=== PATIENT | female | born 1980 | race Caucasian/White ===

== ENCOUNTER 2019-09-24 06:36 | Day surgery (SDC) | payer BC ==
[~2019-09-24 06:36] MED LIST: Lactated Ringers 1,000 ML IV SCH; Sodium Chloride 0.9% 10 ML Syringe FLUSH PRN
[2019-09-24] MEDS ORDERED: fentaNYL 100 MCG/2 ML SDV IV ONE (06:37)
[2019-09-24] MEDS ORDERED: Dexamethasone 4 MG/ML 5 ML MDV IVPUSH ONE (06:37)
[2019-09-24] MEDS ORDERED: HYDROmorphone 2 MG/ML SDV IV ONE (06:37)
[2019-09-24] MEDS ORDERED: Ondansetron 4 MG/2 ML SDV IVPUSH ONE (06:37)
[2019-09-24] MEDS ORDERED: Ketorolac 30 MG/ML SDV IVPUSH ONE (06:37)
[2019-09-24] MEDS ORDERED: Propofol 200 MG/20 ML SDV IV ONE (06:37)
[2019-09-24] MEDS ORDERED: Succinylcholine 200 MG/10 ML MDV IV ONE (06:37)
[2019-09-24] MEDS ORDERED: Neostigmine Methylsulfate 10 MG/10 ML MDV IVPUSH ONE (06:37)
[2019-09-24] MEDS ORDERED: Lactated Ringers 1,000 ML IV ONE (06:37)
[2019-09-24] MEDS ORDERED: Acetaminophen 1,000 MG/100 ML Infusion Bottle Premix IV ONE (06:37)
[2019-09-24] MEDS ORDERED: Glycopyrrolate 0.2 MG/ML 5 ML MDV IV ONE (06:37)
[2019-09-24] MEDS ORDERED: Rocuronium 100 MG/10 ML MDV IV ONE (06:37)
[2019-09-24] MEDS ORDERED: Midazolam 1 MG/ML 2 ML SDV IV ONE (06:37)
[2019-09-24] MEDS ORDERED: Lidocaine 2% 5 ML SDV INJECT ONE (06:37)
[2019-09-24] MEDS ORDERED: ceFAZolin 2 GM in Premix Bag 1 BAG IV ONE (07:30)
--- NOTE | 2019-09-24 08:18 | PCM.PN ---
- General Info Date of Service: 09/24/19 - Review of Systems Systems Review Comment:: 39-year-old female developed upper abdominal pain this week. Work-up as identified cholelithiasis with findings of acute cholecystitis. Patient continues to have pain in the right upper quadrant. She comes this morning for cholecystectomy. She is medically stable to proceed today. No laboratory contraindications are identified to proceeding with cholecystectomy under general anesthesia today. I have again discussed the proposed cholecystectomy with the patient. She agrees to proceed excepting risks. Her questions are answered and instructions reviewed. - Patient Data Vitals - Most Recent: Last Vital Signs Temp 99.0 F 09/24/19 07:22 Pulse 97 09/24/19 07:22 Resp 16 09/24/19 07:22 BP 138/96 H 09/24/19 07:22 Pulse Ox 100 09/24/19 07:22 Weight - Most Recent: 213 lb Lab Results Last 24 Hours: Laboratory Results - last 24 hr 09/24/19 09/24/19 Range/Units 06:59 07:15 Urine HCG, Qual Negative (NEGATIVE) SARS Virus RNA (PCR) Negative (NEGATIVE) Med Orders - Current: Current Medications Lactated Ringer's (Ringers, Lactated) 1,000 mls @ 125 mls/hr IV ASDIRECTED [facility] Last Admin: 09/24/19 08:00 Dose: 125 mls/hr Documented by: Sodium Chloride (Saline Flush) 10 ml FLUSH ASDIRECTED PRN PRN Reason: Keep Vein Open Discontinued Medications Cefazolin Sodium/Dextrose 2 gm (/ Premix) 50 mls @ 100 mls/hr IV ONETIME ONE Stop: 09/24/19 07:59 Last Admin: 09/24/19 08:10 Dose: 100 mls/hr Documented by: Sepsis Event Note - Focused Exam Vital Signs: Vital Signs Temp Pulse Resp BP Pulse Ox 09/24/19 07:22 99.0 F 97 16 138/96 H 100 Date Exam was Performed: 09/24/19 Time Exam was Performed: 08:15 - Problem List Review Problem List Initiated/Reviewed/Updated: Yes - My Orders Last 24 Hours: My Active Orders 09/23/19 13:52 Resuscitation Status Routine 09/23/19 Dinner Nothing Per Oral Diet [DIET] 09/24/19 06:30 Patient to Empty Bladder [RC] ASDIRECTED RT Incentive Spirometry [RC] ASDIRECTED Verify Patient Consent Obtain [RC] ASDIRECTED Lactated Ringers [Ringers, Lactated] 1,000 ml IV ASDIRECTED Sodium Chloride 0.9% [Saline Flush] 10 ml FLUSH ASDIRECTED PRN Peripheral IV Insertion Adult [OM.PC] Routine Sequential Compression Device [OM.PC] Routine 09/24/19 08:00 Patient Status [ADT] Routine - Assessment Assessment:: Acute cholecystitis with cholelithiasis - Plan Plan:: Cholecystectomy
[2019-09-24] MEDS ORDERED: Bupivacaine 0.5%/EPINEPHrine 1:200,000 50 ML MDV INJECT ONE (08:33)
--- NOTE | 2019-09-24 10:11 | PCM.OPNOTE ---
- General Post-Op/Procedure Note Date of Surgery/Procedure: 09/24/19 Operative Procedure(s): Laparoscopic Cholecystectomy Findings: Acutely inflamed gallbladder with stones and hydrops Pre Op Diagnosis: Acute Cholecystitis with cholelithiasis Post-Op Diagnosis: Same Anesthesia Technique: General ET Tube Primary Surgeon: Patrick Orozco Pathology: Gallbladder with stones EBL in mLs: 25 Complications: None Condition: Good
--- NOTE | 2019-09-24 14:22 | OR ---
DATE OF OPERATION: 09/24/2019 SURGEON: Patrick Orozco MD PREOPERATIVE DIAGNOSIS: Acute cholecystitis with cholelithiasis. POSTOPERATIVE DIAGNOSIS: Acute cholecystitis with cholelithiasis. OPERATION PERFORMED: Laparoscopic cholecystectomy. INDICATIONS FOR SURGERY: This 39-year-old female presented to the outpatient clinic with a several day history of right upper quadrant abdominal pain. Workup has identified an acutely inflamed gallbladder with thickened gallbladder wall and multiple stones. She comes for cholecystectomy. FINDINGS: The gallbladder appeared acutely inflamed. Tissues were vascular and the gallbladder wall as well as the adjacent peritoneum were thickened. The liver and other structures appeared normal as viewed laparoscopically. PROCEDURE IN DETAIL: The patient was taken to the operating room. She was given general endotracheal anesthesia, and the abdomen was sterilely prepped and draped. The supraumbilical stab wound incision was made. Through this, a Veress needle was inserted and pneumoperitoneum via this needle to a pressure of 15 mmHg was achieved with carbon dioxide. The Veress needle was then replaced with a 12 mm trocar into which the variable angle 5 mm laparoscopic camera was inserted. Under direct visualization, 5 mm trocars were placed in the subxiphoid midline and in 2 areas of the right abdomen. All trocar sites were infiltrated with Marcaine prior to incision. Intra-abdominal inspection was carried out and attention was turned to the gallbladder. The gallbladder was tense, and in order to improve the ability to manipulate the gallbladder, an aspirating needle was advanced through a trocar into the gallbladder wall and liquid contents of the gallbladder were suctioned out. These were clear consistent with hydrops. This did decompress the gallbladder enough that even with its thickened gallbladder wall it could be secured with grasping forceps and these were used to retract the gallbladder superiorly and anteriorly. Fatty tissue adhesions to the undersurface of the gallbladder were carefully taken down with blunt dissection and the peritoneum overlying the cystic duct was carefully dissected clear until the cystic duct was clearly and positively identified including its junction with the gallbladder. With the edema and intense inflammatory reaction, the cystic artery could still not be adequately accessed, so the cystic duct was milked, doubly clipped, and divided near the gallbladder with great care being used to avoid any injury or compromise to the common bile duct. This mobilized the base of the gallbladder enough so that the cystic artery could be identified, isolated, and then it too was doubly clipped and divided near the gallbladder. The gallbladder was then dissected free from the undersurface of the liver using the hook cautery device. Once the gallbladder had been completely freed, it was placed into an Endo retrieval bag and extracted through the umbilical trocar site. Because of the edema of the gallbladder wall and multiple stones, the fascia of the trocar site had to be enlarged just slightly and this allowed the gallbladder to be extracted with no spillage of stones or bile. Reinspection of the gallbladder bed was then carried out and good hemostasis was assured with the use of electrocautery and then reinforced with a piece of Surgicel. This was placed after the area had been copiously irrigated. With no sign of bleeding or any other complication, the trocars were removed under direct visualization. The fascia of the umbilical trocar site was closed with interrupted [id number] 0 Vicryl. Wounds were irrigated with Betadine and saline solution. Skin incisions approximated with interrupted 4-0 Vicryl in subcuticular stitch. Benzoin and Steri-Strips were applied followed by antibiotic ointment and sterile dressings. The patient was awakened, extubated, and taken from the operating room in satisfactory condition. ESTIMATED BLOOD LOSS: 25 mL. COMPLICATIONS: None. PROGNOSIS: Good. /[id number] CHUYITA/YESENIA
== END 2019-09-24 12:55 | disposition home or self-care (01) ==
LOC: FB.SDS 06:36
PROVIDERS: ATTEND Surgery
DX: K80.00 Calculus of gallbladder with acute cholecystitis without obstruction (principal); Z79.899 Other long term (current) drug therapy; Z88.0 Allergy status to penicillin; Z87.891 Personal history of nicotine dependence; Z11.59 Encounter for screening for other viral diseases
CPT/HCPCS: 00790-QZ; 81025; 88304; J0131; J0330; J0690; J1100; J1170; J1885; J2001; J2250; J2405; J2704; J2710; J3010; J3490; J7120; U0002